=== PATIENT | male | born 1970 ===

== ENCOUNTER 2025-08-09 06:29 | Day surgery (SDC) | payer BC, SELFPAY | END 2025-08-09 16:14 | disposition home or self-care (01) | LOC: GI 06:29 | PROVIDERS: ATTENDING PHYSICIAN Internal Medicine Gastroenterology | DX: Z12.11 Encounter for screening for malignant neoplasm of colon (principal); K64.9 Unspecified hemorrhoids; D12.5 Benign neoplasm of sigmoid colon | CPT/HCPCS: 45380; 88305 ==